=== PATIENT | female | born 1990 | race Caucasian/White ===

== ENCOUNTER 2023-09-25 10:46 | Outpatient (CLI) | payer OTHER, SELFPAY ==
--- NOTE | ~2023-09-25 | MMUS_ITS ---
EXAMINATION: MM diagnostic dawn LT w donte, US breast LT limited HISTORY: Left breast lump TECHNIQUE: ML, MLO and CC 3-D tomosynthesis images of the left breast were performed and synthetic 2- D images were generated. CAD analysis was submitted and interpreted. High resolution targeted left 7: 00 breast ultrasound was performed. COMPARISON: None BREAST PARENCHYMAL COMPOSITION: The breasts are heterogeneously dense, which may obscure small masses . FINDINGS: MAMMOGRAPHIC FINDINGS: There is a circumscribed approximately 1.6 x 1.9 x 2.5 cm mass in the lower inner quadrant of the lef t breast at mid depth, corresponding to the clinically palpable breast lump. No suspicious mass, architectural distortion, malignant calcification, skin thickening or retraction of the left breast is noted otherwise. ULTRASOUND: 7:00 4 cm from nipple: Parallel circumscribed hypoechoic solid lesion measuring 22 x 13.7 x 22 mm. Th ere is mild internal vascularity on color flow imaging. There is through transmission and some integration project manager ior enhancement. Ultrasound-guided biopsy is recommended. IMPRESSION: 1. Approximately 13.7 x 24 mm circumscribed hypoechoic solid mass with through transmission, internal vascularity. This may be a fibroadenoma, but malignancy is not definitively excluded. 2. Ultrasound-guided biopsy of left breast at 7:00 lesion 4 cm from nipple is recommended for tissue diagnosis. BI-RADS category 4a, suspicious findings. Dr. Chaney telephoned the report and ultrasound-guided biopsy recommendation on 09/25/2023 at 1200 hours to Peggy, Nurse Practitioner. Reviewed, dictated and finalized at location A. IMPRESSION: 1. Approximately 13.7 x 24 mm circumscribed hypoechoic solid mass with through transmission, internal vascularity. This may be a fibroadenoma, but malignancy is not definitively excluded. 2. Ultrasound-guided biopsy of left breast at 7:00 lesion 4 cm from nipple is r ecommended for tissue diagnosis. BI-RADS category 4a, suspicious findings. Dr. Chaney telephoned the report and ultrasound-guided biopsy recommendation on at 1200 hours to Peggy Nurse Practitioner. IMPRESSION: 1. Approximately 13.7 x 24 mm circumscribed hypoechoic solid mass with through transmission, internal vascularity. This may be a fibroadenoma, but malignancy is not definitively excluded. 2. Ultrasound-guided biopsy of left breast at 7:00 lesion 4 cm from nipple is r ecommended for tissue diagnosis. BI-RADS category 4a, suspicious findings. Dr. Chaney telephoned the report and ultrasound-guided biopsy recommendation on at 1200 hours to Peggy, Nurse Practitioner.
== END 2023-09-25 10:47 | disposition home or self-care (01) ==
LOC: ANHIMG 10:48
PROVIDERS: PCP Nurse Practitioner Family; Visit Provider Nurse Practitioner Family
DX: N63.20 Unspecified lump in the left breast, unspecified quadrant (principal); R92.8 Other abnormal and inconclusive findings on diagnostic imaging of breast
CPT/HCPCS: 76642; 77061; 77065; G0279

== ENCOUNTER 2023-10-04 10:01 | Outpatient (CLI) | payer OTHER, SELFPAY ==
--- NOTE | ~2023-10-04 | MMUS_ITS ---
US breast biopsy LT w image, MM post biopsy invasive LT EXAMINATION: US GUIDED NEEDLE BIOPSY WITH VACUUM ASSISTANCE DATE: 10/04/2023 11:41 CDT INDICATION: Left breast mass seen on prior examination. Ultrasound-guided core biopsy is requested t o evaluate for malignancy. TECHNIQUE AND FINDINGS: The risks and potential benefits of the procedure were discussed with the patient, and written inform ed consent was obtained. After sterile preparation of the left breast, 1% lidocaine was utilized for local anesthesia. 1% lidocaine with epinephrine was used for deep anesthesia. A 10G vacuum-assisted biopsy gun needle was advanced through to the outer edge of the region of inter est from a inferior approach utilizing sonographic guidance. A total of 4 tissue core samples were o btained through the lesion. An Inrad tissue marker clip was then placed at the biopsy site. Hemostas is was achieved. The patient tolerated procedure well and there was no evidence of immediate complication. The patien t was given verbal instructions partly is from the department. Left breast mammograms to document ti ssue marker clip placement. The tissue samples were submitted to surgical pathology for histologic an alysis. IMPRESSION: 1. Successful ultrasound-guided vacuum-assisted biopsy of left breast mass with tissue marker placem ent. Please refer to pathology report for histologic analysis. Reviewed, dictated and finalized at location A. IMPRESSION: 1. Successful ultrasound-guided vacuum-assisted biopsy of left breast mass wit h tissue marker placement. Please refer to pathology report for histologic anal ysis.
== END 2023-10-04 10:02 | disposition home or self-care (01) ==
LOC: ANHIMG 10:03
PROVIDERS: PCP Nurse Practitioner Family; Visit Provider Nurse Practitioner Family
DX: N63.20 Unspecified lump in the left breast, unspecified quadrant (principal); R92.8 Other abnormal and inconclusive findings on diagnostic imaging of breast
CPT/HCPCS: 19083; 88305; A4648